=== PATIENT | female | born 1990 | race Two or more races ===

== ENCOUNTER 2024-06-13 11:21 | Emergency (ER) | payer OTHER ==
[~2024-06-13] VITALS: Ht 165.1 cm; Wt 66.2 kg
[2024-06-13 12:11] VITALS: BP 122/77; O2SAT 100
[2024-06-13] MEDS ORDERED: PRENATAL + DHA1 EAC1 PO (12:12)
== END 2024-06-13 16:24 | disposition home or self-care (01) ==
LOC: ER 11:23
DX: O20.8 Other hemorrhage in early pregnancy (principal); Z3A.12 12 weeks gestation of pregnancy; Z88.8 Allergy status to other drugs, medicaments and biological substances

== ENCOUNTER 2024-08-01 15:14 | Outpatient (CLI) | payer OTHER ==
[~2024-08-01 15:14] MED LIST: PRENATAL + DHA1 EAC1 PO
== END 2024-08-01 15:17 | disposition home or self-care (01) ==
LOC: PRENATAL 15:14
PROVIDERS: ATTEND Obstetrics & Gynecology Maternal & Fetal Medicine
DX: O44.00 Complete placenta previa NOS or without hemorrhage, unspecified trimester (principal); O09.529 Supervision of elderly multigravida, unspecified trimester; Z3A.20 20 weeks gestation of pregnancy

== ENCOUNTER 2024-10-28 13:51 | Outpatient (CLI) | payer OTHER | END 2024-10-28 13:52 | disposition home or self-care (01) | LOC: PRENATAL 13:51 | PROVIDERS: ATTEND Obstetrics & Gynecology Maternal & Fetal Medicine | DX: O26.849 Uterine size-date discrepancy, unspecified trimester (principal); O36.8199 Decreased fetal movements, unspecified trimester, other fetus; O09.529 Supervision of elderly multigravida, unspecified trimester; Z3A.32 32 weeks gestation of pregnancy ==

== ENCOUNTER 2024-11-25 09:52 | Outpatient (CLI) | payer OTHER | END 2024-11-25 09:54 | disposition home or self-care (01) | LOC: PRENATAL 09:52 | PROVIDERS: ATTEND Obstetrics & Gynecology Maternal & Fetal Medicine | DX: O26.849 Uterine size-date discrepancy, unspecified trimester (principal); O36.8199 Decreased fetal movements, unspecified trimester, other fetus; Z3A.35 35 weeks gestation of pregnancy ==

== ENCOUNTER 2024-12-05 02:33 | Inpatient (IN) | payer OTHER ==
[~2024-12-05] VITALS: Ht 165.1 cm; Wt 73.9 kg
[2024-12-05] VITALS (8 sets, daily range): BP systolic 102–126; BP diastolic 59–80
[2024-12-05] MEDS ORDERED: RINGERS SOLUTION,LACTATED 1,000 ML IV SCH (02:45)
[2024-12-05 03:21] LABS: BASO % 0.3 % (0.1-1.2); EOS # 0.07 (0.04-0.54); EOS % 0.9 % (0.7-7.0); HEMATOCRIT 33.6 % (34.1-44.9); HEMOGLOBIN 11.3 g/dL (11.2-15.7); LYMPH # 1.76 (1.18-3.74); LYMPH % 22.5 % (19.3-53.1); MEAN CORPUSCULAR HEMOGLOBIN 29.7 pg (25.6-32.2); MONO # 0.55 (0.24-0.82); NEUT # 5.32 (1.56-6.13); NEUT % 67.9 % (34.0-71.1); PLATELET COUNT 137 K/uL (163-369); RED CELL DISTRIBUTION WIDTH 12.7 % (11.6-14.4)
[2024-12-05 03:34] LABS: PH,URINE 7.5 (5.0-8.0); URINE APPEARANCE Clear; URINE BILIRRUBIN Negative (NEGATIVE); URINE BLOOD Negative; URINE COLOR Yellow; URINE GLUCOSE Negative (NEGATIVE); URINE KETONE 15 (NEGATIVE); URINE LEUKOCYTE Large; URINE NITRATE Negative; URINE PROTEIN Negative (NEGATIVE); URINE UROBILINOGEN 0.2 E.U./dl
[2024-12-05 03:38] LABS: URINE BACTERIA 416.1 uL (0.0-1933); URINE WBC 31.3 uL (0.0-23.2)
[2024-12-05 03:41] LABS: INR 0.97; PARTIAL THROMBOPLASTIN TIME 27.1 SECONDS (22.0-34.0); PROTHROMBIN TIME 10.6 SECONDS (9.0-11.5)
[2024-12-05] MEDS ORDERED: MORPHINE SULFATE 4 MG/ML CARTRIDGE IV ONE (16:45)
[2024-12-05] MEDS ORDERED: CEFAZOLIN SODIUM 1,000 MG VIAL IV SCH (17:00)
[2024-12-06] VITALS (9 sets, daily range): BP systolic 109–133; BP diastolic 60–86
[2024-12-06] MEDS ORDERED: ONDANSETRON HCL 2 MG/ML VIAL IV ONE (03:45)
[2024-12-06] MEDS ORDERED: ONDANSETRON HCL 2 MG/ML VIAL ONE (04:05)
[2024-12-06] MEDS ORDERED: OXYTOCIN 500 ML IV SCH (07:30)
[2024-12-06] MEDS ORDERED: MORPHINE SULFATE 4 MG/ML VIAL IV ONE (07:30)
[2024-12-06] MEDS ORDERED: OXYTOCIN 20 UNITS/500ML RL PIGGYBAG IV ONE (07:37)
[2024-12-06] MEDS ORDERED: ERYTHROMYCIN BASE OPHT 1GM EACH TUBE OP ONE ×2 (12:36→13:45)
[2024-12-06] MEDS ORDERED: LIDOCAINE HCL 1% 10ML VIAL ONE (12:37)
[2024-12-06] MEDS ORDERED: OXYTOCIN 20 UNITS/1000ML RL PIGGYBAG IV ONE (12:37)
[2024-12-06] MEDS ORDERED: CHLORHEXIDINE GLUCONATE 120 ML BOTTLE TOP ONE ×2 (12:37→13:45)
[2024-12-06] MEDS ORDERED: IBUprofen 400 MG TABLET PO PRN (13:15)
[2024-12-06] MEDS ORDERED: LIDOCAINE HCL 1% 10ML VIAL IJ ONE (13:45)
[2024-12-06] MEDS ORDERED: OXYTOCIN 1,000 ML IV SCH (13:45)
[2024-12-06 19:31] LABS: BASO % 0.1 % (0.1-1.2); HEMATOCRIT 34.8 % (34.1-44.9); HEMOGLOBIN 11.8 g/dL (11.2-15.7); LYMPH # 0.74 (1.18-3.74); MEAN CORPUSCULAR HEMOGLOBIN 29.6 pg (25.6-32.2); MONO # 0.79 (0.24-0.82); MONO % 5.3 % (4.7-12.5); NEUT # 13.26 (1.56-6.13); PLATELET COUNT 156 K/uL (163-369); RED BLOOD COUNT 3.99 M/uL (3.93-5.22); RED CELL DISTRIBUTION WIDTH 12.8 % (11.6-14.4)
[2024-12-07 01:19] VITALS: BP 114/76
[2024-12-07 06:33] VITALS: BP 115/73
[2024-12-07 08:00] VITALS: BP 112/77
[2024-12-07] MEDS ORDERED: PNV,CALCIUM 72/IRON/FOLIC ACID 1 TAB TABLET PO SCH (09:00)
[2024-12-07 17:00] VITALS: BP 119/76
[2024-12-07 21:00] VITALS: BP 118/79
[2024-12-08] VITALS: BP 103/65
[2024-12-08 00:21] VITALS: BP 103/65
[2024-12-08 08:00] VITALS: BP 112/71
== END 2024-12-08 11:03 | disposition home or self-care (01) | DRG 807 ==
LOC: OBS/DEL 02:33 → LDR 16:26 → OBS/DEL 16:26 → OB/GYN 16:26
PROVIDERS: Obstetrics & Gynecology; ADMIT Obstetrics & Gynecology; ATTEND Obstetrics & Gynecology
PROC: 4A1HXCZ Monitoring of Products of Conception, Cardiac Rate, External Approach (ICD-10-PCS; 2024-12-05)
PROC: 10E0XZZ Delivery of Products of Conception, External Approach (ICD-10-PCS; principal; 2024-12-06)
PROC: 0UQG7ZZ Repair Vagina, Via Natural or Artificial Opening (ICD-10-PCS; 2024-12-06)
DX: O71.4 Obstetric high vaginal laceration alone (principal); Z37.0 Single live birth; Z3A.38 38 weeks gestation of pregnancy